=== PATIENT | female | born 1930 | race Caucasian/White ===

== ENCOUNTER 2018-02-10 08:31 | Day surgery (SDC) | payer MEDICARE, OTHER ==
[2018-02-03 12:30] LABS: BASOPHILS % (AUTO) 0.2 % (0-1); EOSINOPHILS # (AUTO) 0.4 X10'3 (0-0.9); HEMATOCRIT 36.7 % (35.0-45.0); HEMOGLOBIN 12.3 g/dl (12.0-16.0); LYMPHOCYTES # (AUTO) 2.8 X10'3 (1.1-4.8); LYMPHOCYTES % (AUTO) 23.7 % (21-51); MEAN CORPUSCULAR HEMOGLOBIN 28.9 PG (27.0-31.0); MEAN CORPUSCULAR HGB CONC 33.4 % (33.0-36.5); MEAN CORPUSCULAR VOLUME 86.7 FL (78-98); MEAN PLATELET VOLUME 7.4 FL (7.4-10.4); MONOCYTES % (AUTO) 8.5 % (2-12); NEUTROPHILS # (AUTO) 7.7 X10'3 (1.8-7.7); NEUTROPHILS % (AUTO) 64.6 % (42-75); PLATELET COUNT 292 X10'3 (140-440); RED BLOOD COUNT 4.24 X10'6 (4.20-5.60); RED CELL DISTRIBUTION WIDTH 13.8 % (11.5-14.5); WHITE BLOOD COUNT 11.9 X10'3 (4.5-11.0)
[2018-02-03 12:50] LABS: PARTIAL THROMBOPLASTIN TIME 28 SECONDS (22-32); PROTHROMBIN TIME 10.2 SECONDS (9.0-12.0)
[2018-02-03 12:54] LABS: ALANINE AMINOTRANSFERASE 19 U/L (12-78); ALBUMIN/GLOBULIN RATIO 1.3 (1.1-1.5); ALKALINE PHOSPHATASE 57 IU/L (46-116); ANION GAP 6 (8-16); ASPARTATE AMINO TRANSFERASE 18 U/L (10-37); BILIRUBIN,TOTAL 0.4 MG/DL (0.1-1.0); BLOOD UREA NITROGEN 19 MG/DL (7-18); BUN/CREATININE RATIO 20.9 (6.6-38.0); CALCIUM 9.5 MG/DL (8.5-10.1); CHLORIDE 103 MMOL/L (99-107); CREATININE 0.91 MG/DL (0.40-0.90); GLUCOSE 102 MG/DL (70-104); SODIUM 139 MMOL/L (135-145); TOTAL PROTEIN 7.2 G/DL (6.4-8.2); eGFR 59 ML/MIN
[~2018-02-10] VITALS: Ht 165.1 cm; Wt 60.2 kg
[2018-02-10] VITALS (13 sets, daily range): BP systolic 99–133; BP diastolic 51–73
[2018-02-10] MEDS ORDERED: LORazepam 0.5 MG tablet PO PRN (09:00)
[2018-02-10] MEDS ORDERED: normal saline 1000ml 1,000 ML IV SCH (09:00)
[2018-02-10] MEDS ORDERED: diphenhydrAMINE 25mg capsule PO PRN (09:00)
[2018-02-10] MEDS ORDERED: nitroGLYCERIN 0.4mg SUBLingual tab SL PRN (09:00)
[2018-02-10] MEDS ORDERED: occuvite PO (10:32)
[2018-02-10] MEDS ORDERED: DOCO1CAP6 PO (10:32)
[2018-02-10] MEDS ORDERED: OMEP10SU2 PO (10:32)
[2018-02-10] MEDS ORDERED: SYN0.088T PO (10:32)
[2018-02-10] MEDS ORDERED: TRAZ-143 PO (10:32)
[2018-02-10] MEDS ORDERED: GABA-534 PO (10:32)
[2018-02-10] MEDS ORDERED: GABA-532 PO (10:32)
[2018-02-10] MEDS ORDERED: ACET-2319 PO (10:32)
[2018-02-10] MEDS ORDERED: CARB25TA3 PO (10:32)
[2018-02-10] MEDS ORDERED: fentaNYL/PF 50MCG/1 ML 2ML syringe ONE (10:35)
[2018-02-10] MEDS ORDERED: midazolam 2 mg/2 ml injection ONE (10:35)
[2018-02-10] MEDS ORDERED: iohexol 350 MG/ML 50ML vial IV ONE ×2 (10:36→11:17)
[2018-02-10] MEDS ORDERED: iohexol 350MG/ML 100ml bottle IV ONE (10:36)
[2018-02-10] MEDS ORDERED: OXAZEpam 15mg capsule PO PRN (12:40)
[2018-02-10] MEDS ORDERED: ondansetron/PF 4mg/2ml inj IV PRN (12:40)
[2018-02-10] MEDS ORDERED: proCHLORperazine 10 MG/2 ml inj IV PRN (12:40)
== END 2018-02-10 19:00 | disposition home or self-care (01) ==
LOC: SSTAY O 08:31
PROVIDERS: ATTEND Internal Medicine Cardiovascular Disease
DX: I25.10 Atherosclerotic heart disease of native coronary artery without angina pectoris (principal); I71.4 Abdominal aortic aneurysm, without rupture; I34.1 Nonrheumatic mitral (valve) prolapse; M19.90 Unspecified osteoarthritis, unspecified site; J44.9 Chronic obstructive pulmonary disease, unspecified; G89.4 Chronic pain syndrome; Z90.89 Acquired absence of other organs; Z72.89 Other problems related to lifestyle; Z79.891 Long term (current) use of opiate analgesic; Z88.0 Allergy status to penicillin; Z88.6 Allergy status to analgesic agent; Z98.890 Other specified postprocedural states; Z79.899 Other long term (current) drug therapy
CPT/HCPCS: 36415; 71046; 80053; 85025; 85610; 85730; 93005; 93458; 99152; 99153; A6257; C1760; C1769; J1644; J2250; J3010; J7030; Q0163; Q9967; A4620

== ENCOUNTER 2021-07-24 09:52 | Emergency (ER) | payer MEDICARE, OTHER ==
[~2021-07-24] VITALS: Ht 165.1 cm; Wt 65.0 kg
[~2021-07-24 09:52] MED LIST: ACET-2319 PO; CEPH-585 PO; GABA-532 PO; GABA-534 PO; LEVO125T PO; LIDO700A47 TOP; METO-395 PO; NITR0.4T51 SL; NITR1PAT63 TD; OCUVITE PO; PANT40TA54 PO; ROPI0.2540 PO; TRAM50TA2 PO
[2021-07-24 10:24] LABS: BASOPHILS % (AUTO) 0.2 % (0-1); EOSINOPHILS % (AUTO) 0.1 % (0-6); HEMATOCRIT 34.3 % (35.0-45.0); HEMOGLOBIN 11.1 g/dl (12.0-16.0); LYMPHOCYTES # (AUTO) 0.5 X10'3 (1.1-4.8); LYMPHOCYTES % (AUTO) 6.8 % (21-51); MEAN CORPUSCULAR HGB CONC 32.4 g/dL (33.0-36.5); MEAN CORPUSCULAR VOLUME 86.4 FL (78-98); MEAN PLATELET VOLUME 7.6 FL (7.4-10.4); MONOCYTES # (AUTO) 0.6 X10'3 (0-0.9); MONOCYTES % (AUTO) 8.4 % (2-12); NEUTROPHILS # (AUTO) 6.4 X10'3 (1.8-7.7); NEUTROPHILS % (AUTO) 84.5 % (42-75); PLATELET COUNT 238 X10'3 (140-440); RED BLOOD COUNT 3.97 X10'6 (4.20-5.60); RED CELL DISTRIBUTION WIDTH 14.8 % (11.5-14.5); WHITE BLOOD COUNT 7.5 X10'3 (4.5-11.0)
[2021-07-24 10:42] LABS: ALANINE AMINOTRANSFERASE 17 U/L (12-78); ALBUMIN 3.2 G/DL (3.4-5.0); ALBUMIN/GLOBULIN RATIO 0.9 (1.1-1.5); ALKALINE PHOSPHATASE 56 IU/L (46-116); ANION GAP 9 (8-16); ASPARTATE AMINO TRANSFERASE 16 U/L (10-37); BILIRUBIN,TOTAL 0.4 MG/DL (0.1-1.0); BLOOD UREA NITROGEN 27 MG/DL (7-18); BUN/CREATININE RATIO 16.4 (6.6-38.0); CALCIUM 8.9 MG/DL (8.5-10.1); CHLORIDE 102 MMOL/L (99-107); CREATININE 1.65 MG/DL (0.40-0.90); GLUCOSE 117 MG/DL (70-104); POTASSIUM 4.6 MMOL/L (3.5-5.1); SODIUM 139 MMOL/L (135-145); TOTAL CARBON DIOXIDE 28.2 MMOL/L (24-32); TOTAL PROTEIN 6.9 G/DL (6.4-8.2); eGFR 29 ML/MIN
[2021-07-24 10:46] LABS: BILIRUBIN,DIRECT 0.2 MG/DL (0-0.3); LIPASE < 50 U/L (73-393); TROPONIN I < 0.04 NG/ML (0.0-0.05)
[2021-07-24 12:18] VITALS: BP 153/68
--- NOTE | 2021-07-24 13:28 | NUR ---
Pt friend Mervat called and left number. Pts friend is her ride. [phone]
[2021-07-24 14:26] LABS: COLOR,URINE YELLOW (Yellow); UA COLLECTION TYPE CLN CATCH MIDSTREAM
[2021-07-24 14:27] LABS: CLARITY,URINE SLIGHTLY CLOUDY (Clear); KETONES,URINE NEGATIVE (Neg); UROBILINOGEN,URINE 0.2 E.U/dL (0.2-1.0)
[2021-07-24 14:28] LABS: GLUCOSE, URINE NEGATIVE (Neg); LEUKOCYTE ESTERASE ,URINE MODERATE (Neg); NITRITES, URINE POSITIVE (Neg); OCCULT BLOOD,URINE Moderate (Neg); PROTEIN,URINE 30 mg/dl (Neg)
[2021-07-24 14:36] LABS: WBC,URINE 20-30 /HPF (0-4)
[2021-07-24 14:37] LABS: BACTERIA,URINE 4+ /HPF (Neg); MUCUS STRANDS NONE SEEN /LPF (Neg); RBC,URINE 0-2 /HPF (0-2); SQUAMOUS EPITHELIAL CELL,UR FEW /LPF (FEW); WBC CLUMPS,URINE FEW /HPF (NEGATIVE)
== END 2021-07-24 16:14 | disposition home or self-care (01) ==
LOC: ER 09:52
DX: S82.492D Other fracture of shaft of left fibula, subsequent encounter for closed fracture with routine healing (principal); R62.7 Adult failure to thrive; I25.10 Atherosclerotic heart disease of native coronary artery without angina pectoris; Z86.2 Personal history of diseases of the blood and blood-forming organs and certain disorders involving the immune mechanism; Z88.0 Allergy status to penicillin; Z88.2 Allergy status to sulfonamides; Z88.5 Allergy status to narcotic agent; Z79.2 Long term (current) use of antibiotics; Z79.899 Other long term (current) drug therapy; R29.6 Repeated falls; W19.XXXD Unspecified fall, subsequent encounter
CPT/HCPCS: 36415; 70450; 71045; 72125; 80048; 80076; 81001; 83690; 84484; 85025; 93005; 99285